=== PATIENT | male | born 1965 | race Caucasian/White ===

== ENCOUNTER 2021-07-10 08:57 | Emergency (ER) | payer OTHER ==
[~2021-07-10] VITALS: Ht 185.4 cm; Wt 103.4 kg
--- NOTE | 2021-07-10 09:15 | NUR ---
THE PATIENT BIBWIFE FOR LEFT FOOT PAIN6/10 and SWELLING,INJURED WHILE DRIVING A "CART" YESTERDAY. NO APPARENT DEFORMITY NOTED. WILL CONTINUE TO MONITOR THE PATIENT.
--- NOTE | 2021-07-10 09:16 | NUR ---
LEFT FOOT PAIN/SWELLING,INJURED WHILE DRIVING A "CART" YESTERDAY. 6/10 PAIN ON PAIN SCALE. AWAITING MD MCKENZIE.
--- NOTE | 2021-07-10 09:41 | NUR ---
X-RAY TECH AT THE BEDSIDE
[2021-07-10 10:45] VITALS: BP 133/82
--- NOTE | 2021-07-10 10:45 | NUR ---
Patient discharged to home in stable condition. Written and verbal after care instructions given. Patient verbalizes understanding of instruction.
== END 2021-07-10 10:48 | disposition home or self-care (01) ==
LOC: ER 08:57
DX: S92.312A Displaced fracture of first metatarsal bone, left foot, initial encounter for closed fracture (principal); S92.322A Displaced fracture of second metatarsal bone, left foot, initial encounter for closed fracture; S90.32XA Contusion of left foot, initial encounter; I10 Essential (primary) hypertension; X58.XXXA Exposure to other specified factors, initial encounter; Y93.89 Activity, other specified; Y92.89 Other specified places as the place of occurrence of the external cause; Y99.8 Other external cause status
CPT/HCPCS: 73630-TC